=== PATIENT | female | born 1975 | race Hispanic/Latino ===

== ENCOUNTER 2018-06-24 12:53 | Emergency (ER) | payer BC ==
[2018-06-24 12:59] VITALS: TEMP 98.3
--- NOTE | 2018-06-24 14:20 | CT ---
Date of service: 06/24/2018 PROCEDURE: CT Lumbar Spine without contrast HISTORY: low back pain, acute on chronic COMPARISON: None available. TECHNIQUE: Axial computed tomography images were obtained of the lumbar spine without the use of intravenous contrast. Coronal and sagittal reformatted images were created and reviewed. Radiation dose: Total exam DLP = 639.95 mGy-cm. This CT exam was performed using one or more of the following dose reduction techniques: Automated exposure control, adjustment of the mA and/or kV according to patient size, and/or use of iterative reconstruction technique. FINDINGS: VERTEBRAE: Unremarkable. No fracture. Normal alignment. DISCS/SPINAL CANAL/NEURAL FORAMINA: L1-2: Unremarkable. L2-3: Unremarkable. L3-4: Unremarkable. L4-5: Disc bulge with thecal sac indentation. Accompanying facet arthropathy. L5-S1: Disc bulge with thecal sac indentation and accompanying facet arthropathy. PARASPINAL SOFT TISSUES: Unremarkable. OTHER FINDINGS: None. IMPRESSION: No fracture. Lower lumbar degenerative disc disease.
--- NOTE | 2018-06-24 15:02 | ED PDOC ---
HPI: Back Time Seen by Provider: 06/24/18 13:02 Chief Complaint (Nursing): Back Pain Chief Complaint (Provider): Back Pain History Per: Patient History/Exam Limitations: no limitations Current Symptoms Are (Timing): Still Present Pain Scale Rating Of: 10 Previous Symptoms: Chronic Pain Additional Complaint(s): 42 yo female presents with pain left lower back and buttocks, radiating down the leg. Pt had similar on the right side 8 years ago and was [facility]. Pt states she had emergency surgery and was told that she could have permanent nerve damage is she did not have surgery within days. Pt reports pain at that time feels similar to today. Pt states when she had surgery she was not having numbness/tinlging or bladder/bowel incontinence. Pt denies fever/chills, numbness/tingling, bladder/bowel incontinence today. Pt states over the last 8 eyar since surgery she has had intermittent lower left back pain. Pt states she normally sees a chiropractor and take motrin which helps her symptoms. Pt states the last few days she has been having mild pain, which she has been taking motrin for. PT states that she took 800mg motrin today. Pt states she was picking up her daughters toys and had acute onset of sharp left sided pain with radiation down leg associated with cramping sensation. Past Medical History Reviewed: Historical Data, Nursing Documentation, Vital Signs Vital Signs: Last Vital Signs Temp 98.3 F 06/24/18 12:57 Pulse 55 L 06/24/18 12:57 Resp 16 06/24/18 12:57 BP 106/64 06/24/18 12:57 Pulse Ox 100 06/24/18 12:57 - Medical History PMH: Back Problems - Surgical History Surgical History: No Surg Hx - Family History Family History: States: No Known Family Hx - Living Arrangements Living Arrangements: With Family - Social History Current smoker - smoking cessation education provided: No - Home Medications Home Medications: Ambulatory Orders Medication Instructions Recorded diaZEpam [Valium] 5 mg PO Q6H PRN #15 tab 06/24/18 oxyCODONE/Acetaminophen [Percocet 1 ea PO Q6H PRN #15 tab 06/24/18 5/325 mg Tab] predniSONE [predniSONE Tab] 20 mg PO DAILY #12 tab 06/24/18 - Allergies Allergies/Adverse Reactions: Allergies Allergy/AdvReac Type Severity Reaction Status Date / Time No Known Allergies Allergy Verified 06/24/18 12:57 Review of Systems ROS Statement: Except As Marked, All Systems Reviewed And Found Negative Constitutional: Negative for: Fever, Chills Gastrointestinal: Negative for: Nausea, Vomiting, Abdominal Pain Genitourinary Female: Negative for: Dysuria, Frequency Musculoskeletal: Positive for: Back Pain Physical Exam - Reviewed Nursing Documentation Reviewed: Yes Vital Signs Reviewed: Yes - Physical Exam Appears: Positive for: Well, Non-toxic, No Acute Distress Head Exam: Positive for: ATRAUMATIC, NORMAL INSPECTION, NORMOCEPHALIC Skin: Positive for: Normal Color, Warm, DRY Eye Exam: Positive for: Normal appearance ENT: Positive for: Normal ENT Inspection Neck: Positive for: Normal, Painless ROM Cardiovascular/Chest: Positive for: Regular Rate, Rhythm Respiratory: Positive for: Normal Breath Sounds. Negative for: Accessory Muscle Use, Respiratory Distress Back: Positive for: Muscle Spasm. Negative for: Normal Inspection ((+) linear scar lower back), L CVA Tenderness, R CVA Tenderness, Vertebral Tenderness Rectal: Positive for: Normal Exam, Rectal Tone Is: Extremity: Positive for: Normal ROM. Negative for: Calf Tenderness, Deformity Neurologic/Psych: Positive for: Alert, Oriented - ECG O2 Sat by Pulse Oximetry: 100 Pulse Ox Interpretation: Normal Medical Decision Making Medical Decision Making: Time: 1309 Initial Plan: --Valium 5 mg PO --CT lumbar spine 1415 --CT lumbar spine FINDINGS: VERTEBRAE: Unremarkable. No fracture. Normal alignment. DISCS/SPINAL CANAL/NEURAL FORAMINA: L1-2: Unremarkable. L2-3: Unremarkable. L3-4: Unremarkable. L4-5: Disc bulge with thecal sac indentation. Accompanying facet arthropathy. L5-S1: Disc bulge with thecal sac indentation and accompanying facet arthropathy. PARASPINAL SOFT TISSUES: Unremarkable. OTHER FINDINGS: None. IMPRESSION: No fracture. Lower lumbar degenerative disc disease. 1520 --Percocet 5/325 mg PO --prednisone 80 mg PO Case and CT results discussed with Dr. Betancourt. Scribe Attestation: Documented by Mohit Galvan, acting as a scribe for Chaya Yoo PA-C Provider Scribe Attestation: All medical record entries made by the Scribe were at my direction and personally dictated by me. I have reviewed the chart and agree that the record accurately reflects my personal performance of the history, physical exam, medical decision making, and the department course for this patient. I have also personally directed, reviewed, and agree with the discharge instructions and disposition. Disposition - Clinical Impression Clinical Impression: Sciatica - Patient ED Disposition Is Patient to be Admitted: No Counseled Patient/Family Regarding: Diagnosis, Need For Followup, Rx Given - Disposition Referrals: Suleman Blanton MD [Staff Provider] - Disposition: Routine/Home Disposition Time: 15:34 Condition: GOOD Prescriptions: diaZEpam [Valium] 5 mg PO Q6H PRN #15 tab PRN Reason: Pain oxyCODONE/Acetaminophen [Percocet 5/325 mg Tab] 1 ea PO Q6H PRN #15 tab PRN Reason: Pain, Severe (8-10) predniSONE [predniSONE Tab] 20 mg PO DAILY #12 tab Instructions: Sciatica (DC) Forms: Induction Manager ([place])
[2018-06-24] MEDS ORDERED: Oxycodone/Acetaminophen 5/325 mg Tab PO STA (15:21)
[2018-06-24] MEDS ORDERED: Oxycodone/Acetaminophen 5/325 mg Tab ONE (15:35)
[2018-06-24 16:06] VITALS: BP 116/75; PULSE 79; RESP 17; O2SAT 99
== END 2018-06-24 16:06 | disposition home or self-care (01) ==
LOC: H.ER 12:53
DX: M54.30 Sciatica, unspecified side (principal); G89.29 Other chronic pain